=== PATIENT | male | born 1980 | race Caucasian/White ===

== ENCOUNTER 2017-06-07 21:34 | Emergency (ER) | payer BC ==
[~2017-06-07] VITALS: Ht 180.3 cm; Wt 81.6 kg
--- NOTE | 2017-06-07 21:50 | NUR ---
DR. HARDIN AT BEDSIDE FOR MSE.
[2017-06-07 22:54] VITALS: BP 115/74
--- NOTE | 2017-06-07 22:54 | NUR ---
Patient discharged to home in stable conditon. Written and verbal after care instructions given. Patient verbalizes understanding of instructions. PATIENT LEFT WITH STABLE GAIT.
== END 2017-06-07 22:55 | disposition home or self-care (01) ==
LOC: ER 21:35
DX: M62.838 Other muscle spasm (principal)
CPT/HCPCS: A4663; J1885